=== PATIENT | female | born 1935 | race Caucasian/White ===

== ENCOUNTER 2016-12-21 19:50 | Emergency (ER) | payer OTHER, MEDICARE ==
--- NOTE | 2016-12-21 20:07 | PDOC ---
History of Present Illness - History of Present Illness Initial Comments: 12/21/16 20:21 The patient is a 81 year old female with a past medical hx of HTN who presents to the ED complaining of right foot pain since last night. The patient states she was getting out of her car when she tripped and hit her right foot into the curb. She reports she has been having pain to her foot ever since. She reports she is unable to bear weight or walk on her right foot due to the pain. She denies falling or hitting her neck or head. She denies a hx of fractures to her right foot. She has not taken any medication for the pain and has no further complaints at this time. Social: No toxic habits reported PCP: Dr. Monsivais <Sintia Mckinley - Last Filed: 12/21/16 21:13> <Ebony Davis - Last Filed: 12/22/16 00:30> - General Chief Complaint: Injury Stated Complaint: RIGHT FOOT INJURY Time Seen by Provider: 12/21/16 19:55 Past History <Sintia Mckinley - Last Filed: 12/21/16 21:13> <Ebony Davis - Last Filed: 12/22/16 00:30> - Past Medical History Allergies/Adverse Reactions: Allergies Allergy/AdvReac Type Severity Reaction Status Date / Time bacitracin Allergy Unknown Verified 12/21/16 19:56 phenytoin sodium Allergy Unknown Verified 12/21/16 19:56 [From Dilantin] phenytoin sodium extended Allergy Unknown Verified 12/21/16 19:56 [From Dilantin] Sulfa (Sulfonamide Allergy Unknown Verified 12/21/16 19:56 Antibiotics) bacitracin zinc Allergy Verified 12/21/16 19:56 [From Cortisporin] hydrocortisone Allergy Verified 12/21/16 19:56 [From Cortisporin] neomycin [From Cortisporin] Allergy Verified 12/21/16 19:56 neomycin sulfate Allergy Verified 12/21/16 19:56 [From Cortisporin] polymyxin B Allergy Verified 12/21/16 19:56 [From Cortisporin] polymyxin B sulfate Allergy Verified 12/21/16 19:56 [From Cortisporin] Home Medications: Ambulatory Orders Amlodipine Besylate 5 mg PO DAILY 12/21/16 Ca/D3/Mag#11/Zinc/Facility Maintenance Worker/Gordon/Bor [Caltrate 600+D Plus Tablet] 1 each PO DAILY Fexofenadine HCl [Chasidy Allergy] 60 mg PO DAILY PRN 12/21/16 Hydrochlorothiazide [Hctz -] 25 mg PO DAILY 12/21/16 Levothyroxine [Synthroid -] 150 mcg PO DAILY 12/21/16 Meclizine HCl [Antivert -] 25 mg PO TID PRN 12/21/16 Metoprolol Succinate [Toprol Xl -] 100 mg PO DAILY 12/21/16 Multivit-Min/FA/Lycopen/Lutein [Centrum Silver Tablet] 1 each PO DAILY 12/21/16 Potassium Chloride [Klor-Con] 20 meq PO DAILY 12/21/16 Rosuvastatin Calcium [Crestor] 10 mg PO HS 12/21/16 Warfarin Na [Coumadin] 2 mg PO ASDIR 12/21/16 Warfarin Na [Coumadin] 4 mg PO ASDIR 12/21/16 Review of Systems - Review of Systems Able to Perform ROS?: Yes Comments:: 12/21/16 20:22 CONSTITUTIONAL: Absent: fever, no chills, no fatigue EYES: Absent: visual changes ENT: Absent: ear pain, no sore throat CARDIOVASCULAR: Absent: chest pain, no palpitations RESPIRATORY: Absent: cough, no SOB GI: Absent: abdominal pain, no nausea, no vomiting, no constipation, no diarrhea GENITOURINARY: Absent: dysuria, no frequency, no hematuria MUSCULOSKELETAL: +Right foot pain. Absent: back pain, neck pain SKIN: Absent: rash NEURO: Absent: headache <Sintia Mckinley - Last Filed: 12/21/16 21:13> *Physical Exam - Vital Signs Last Vital Signs Temp Pulse Resp BP Pulse Ox 97.4 F L 65 16 146/72 95 12/21/16 19:54 12/21/16 19:54 12/21/16 19:54 12/21/16 19:54 12/21/16 19:54 - Physical Exam Comments: 12/21/16 20:24 GENERAL: The patient is awake, alert, and fully oriented, in no acute distress. HEAD: Normal with no signs of trauma. EYES: Pupils equal, round and reactive to light, extraocular movements intact, sclera anicteric, conjunctiva clear with no pallor. ENT: Ears normal, nares patent, oropharynx clear without exudates. Moist mucous membranes. NECK: Normal range of motion, supple without lymphadenopathy, JVD, or masses. LUNGS: Breath sounds equal, clear to auscultation bilaterally. No wheeze/ crackles. HEART: Regular rate and rhythm, normal S1 and S2 without murmur or rub. ABDOMEN: Soft/nontender/nondistended. BS wnl. No guarding or rebound. No palpable masses. No hepatosplenomegaly. EXTREMITIES: +Moderate edema and moderate tenderness of the right lateral aspect of the dorsum mid foot with faint ecchymotic area of 3cm x 4cm centered around the lateral mid foot. No deformity noted. Palpable dorsalis pedis pulse mid foot. Distal extremity is warm, dry, and has good capillary refill. Nontender ankle. No clubbing or cyanosis. No cords. NEUROLOGICAL: Cranial nerves II through XII grossly intact. Normal speech, normal gait. PSYCH: Normal mood, normal affect. SKIN: Warm, Dry, normal turgor, no rashes or lesions noted. <Sintia Mckinley - Last Filed: 12/21/16 21:13> ED Treatment Course - RADIOLOGY Radiograph Interpretation: 12/21/16 21:13 X-Ray right foot AP, oblique and lateral projections of the right foot reveals a marked deformity of the foot. There is a fracture through the fifth metatarsal which may be subacute. Clinical correlation is advised. IMPRESSION: Fracture fifth metatarsal Reported By: Damien Soliman MD 12/21/162056 <Sintia Mckinley - Last Filed: 12/21/16 21:13> Medical Decision Making - Medical Decision Making Documentation has been prepared under my direction and personally reviewed by me in its entirety. I attest that this documented accurately reflects all work, treatment, procedures and medical decision making performed by me. as noted above, this 81-year-old woman presents with trauma to the right foot, sustained earlier today. Lateral aspect of the midfoot was impacted against curb when she stumbled getting out of a car. The patient states that she has some pain in the foot but can weight-bear without significant disability. Exam is noted above. Right foot x-ray reveals minimally displaced spiral fracture of the shaft of the fifth metatarsal bone. No other acute abnormality seen. Results discussed with the patient. Patient will have a post-op hard soled shoe applied. She should elevate and ice the foot as much as possible over the next 2-3 days. The patient has her own orthopedist. She should plan on following up with her orthopedist within 1 week (sooner if she has severe pain) . She should take Tylenol as needed for pain. <Ebony Davis - Last Filed: 12/22/16 00:30> *DC/Admit/Observation/Transfer - Attestations Scribe Attestion: 12/21/16 20:21 Documentation prepared by Sintia Mckinley, acting as hospitalist medical director for Ebony Davis MD/DO. <Sintia Mckinley - Last Filed: 12/21/16 21:13> <Ebony Davis - Last Filed: 12/22/16 00:30> Diagnosis at time of Disposition: Fracture of 5th metatarsal Qualifiers: Encounter type: initial encounter Fracture alignment: nondisplaced Laterality: right - Discharge Dispostion Disposition: HOME Condition at time of disposition: Good - Referrals Referrals: Bhavesh Monsivais [Primary Care Provider] - - Patient Instructions Printed Discharge Instructions: Foot Fracture Additional Instructions: elevate/ ice to area as much as possible for the next 2 days hard-soled shoe for ambulation Tylenol as needed for pain followup with your orthopedist within 1 week return here or see your orthopedist sooner if area becomes moire painful
[2016-12-21 20:20] VITALS: BP 146/72; PULSE 65; TEMP 97.4; BMI 36.6
== END 2016-12-21 21:12 | disposition home or self-care (01) ==
LOC: FER 19:50
DX: S92.351A Displaced fracture of fifth metatarsal bone, right foot, initial encounter for closed fracture (principal); X58.XXXA Exposure to other specified factors, initial encounter; Y93.89 Activity, other specified; Y92.410 Unspecified street and highway as the place of occurrence of the external cause; I10 Essential (primary) hypertension
CPT/HCPCS: 73630-TC-RT; 99282-25

== ENCOUNTER 2017-07-15 19:50 | Emergency (ER) | payer OTHER, MEDICARE ==
[2017-07-15 20:05] VITALS: BP 122/66; PULSE 67; TEMP 97.8; BMI 39.9
--- NOTE | 2017-07-15 20:14 | PDOC ---
History of Present Illness <Didi Peña - Last Filed: 07/15/17 21:45> <Ebony Davis - Last Filed: 07/16/17 06:42> - General Chief Complaint: Irregular Heart Beat Stated Complaint: IRREG HEARTBEAT Time Seen by Provider: 07/15/17 19:53 - History of Present Illness Initial Comments: 07/15/17 21:42 The patient is an 82 year old female with past medical history of hypertension, hyperlipidemia, hypothyroidism and vertigo who presents to the ED with complaints of irregular heartbeat that occurred around 5:30 this evening. The patient states that 3 days ago she was at her PCPs office in which she was diagnosed with a UTI and was prescribed Ciprofloxacin. The patient described her heartbeat as skipping after every third beat which lasted about a half hour and has yet to return. In that time period she also felt lightheaded which she is unsure if it was due to her vertigo or not. The episode was not associated with any shortness of breath or chest pain. She believes her symptoms were related to the antibiotics she was prescribed and consulted her pharmacy. She was advised to stop taking the antibiotics. The patient denies any history of heart disease both personally and within her family. She reports being a former smoker. The patient denies any fever, chills, nausea, vomiting, diarrhea, or cough. (Didi Peña) Past History <Didi Peña - Last Filed: 07/15/17 21:45> - Past Medical History DVT: Yes HTN: Yes Hypercholesterolemia: Yes Thyroid Disease: Yes - Psycho/Social/Smoking Cessation Hx Anxiety: No Suicidal Ideation: No Smoking History: Never smoked Hx Alcohol Use: No Drug/Substance Use Hx: No Substance Use Type: None <Ebony Davis - Last Filed: 07/16/17 06:42> - Past Medical History Allergies/Adverse Reactions: Allergies Allergy/AdvReac Type Severity Reaction Status Date / Time bacitracin Allergy Unknown Verified 12/21/16 19:56 phenytoin sodium Allergy Unknown Verified 12/21/16 19:56 [From Dilantin] phenytoin sodium extended Allergy Unknown Verified 12/21/16 19:56 [From Dilantin] Sulfa (Sulfonamide Allergy Unknown Verified 12/21/16 19:56 Antibiotics) bacitracin zinc Allergy Verified 12/21/16 19:56 [From Cortisporin] hydrocortisone Allergy Verified 12/21/16 19:56 [From Cortisporin] neomycin [From Cortisporin] Allergy Verified 12/21/16 19:56 neomycin sulfate Allergy Verified 12/21/16 19:56 [From Cortisporin] polymyxin B Allergy Verified 12/21/16 19:56 [From Cortisporin] polymyxin B sulfate Allergy Verified 12/21/16 19:56 [From Cortisporin] Home Medications: Ambulatory Orders Amlodipine Besylate 5 mg PO DAILY 12/21/16 Ca/D3/Mag#11/Zinc/Chief Of Staff Doctor/Gordon/Bor [Caltrate 600+D Plus Tablet] 1 each PO DAILY Hydrochlorothiazide [Hctz -] 25 mg PO DAILY 12/21/16 Levothyroxine [Synthroid -] 150 mcg PO DAILY 12/21/16 Meclizine HCl [Antivert -] 25 mg PO TID PRN 12/21/16 Metoprolol Succinate [Toprol Xl -] 100 mg PO DAILY 12/21/16 Multivit-Min/FA/Lycopen/Lutein [Centrum Silver Tablet] 1 each PO DAILY 12/21/16 Potassium Chloride [Klor-Con] 20 meq PO DAILY 12/21/16 Rosuvastatin Calcium [Crestor] 10 mg PO HS 12/21/16 Warfarin Na [Coumadin] 2 mg PO ASDIR 12/21/16 Warfarin Na [Coumadin] 4 mg PO ASDIR 12/21/16 Ciprofloxacin [Cipro (Restricted To Id)] 250 mg PO BID 07/15/17 Nitrofurantoin Monohyd/M-Cryst [Macrobid -] 100 mg PO BID #14 capsule 07/15/17 Review of Systems - Review of Systems Able to Perform ROS?: Yes All Other Systems: Reviewed and Negative <Didi Peña - Last Filed: 07/15/17 21:45> <Ebony Davis - Last Filed: 07/16/17 06:42> - Review of Systems Comments:: 07/15/17 21:42 CONSTITUTIONAL: Absent: fever, chills, diaphoresis, generalized weakness, malaise, loss of appetite HEENT: Absent: rhinorrhea, nasal congestion, throat pain, throat swelling, difficulty swallowing, mouth swelling, ear pain, eye pain, visual Changes CARDIOVASCULAR: Present: irregular heartbeat, lightheadedness Absent: chest pain, syncope, palpitations, peripheral edema RESPIRATORY: Absent: cough, shortness of breath, dyspnea with exertion, orthopnea, wheezing, stridor, hemoptysis GASTROINTESTINAL: Absent: abdominal pain, abdominal distension, nausea, vomiting, diarrhea, constipation, melena, hematochezia GENITOURINARY: Absent: dysuria, frequency, urgency, hesitancy, hematuria, flank pain, genital pain MUSCULOSKELETAL: Absent: myalgia, arthralgia, joint swelling SKIN: Absent: rash, itching, pallor HEMATOLOGIC/IMMUNOLOGIC: Absent: easy bleeding, easy bruising, lymphadenopathy, frequent infections ENDOCRINE: Absent: unexplained weight gain, unexplained weight loss, heat intolerance, cold intolerance NEUROLOGIC: Absent: headache, focal weakness or paresthesias, dizziness, unsteady gait, seizure, mental status changes, bladder or bowel incontinence PSYCHIATRIC: Absent: anxiety, depression, suicidal or homicidal ideation, hallucinations. (MarianaDidi) *Physical Exam <MarianaDidi - Last Filed: 07/15/17 21:45> <Ebony Davis Jory - Last Filed: 07/16/17 06:42> - Vital Signs Last Vital Signs Temp Pulse Resp BP Pulse Ox 97.8 F 67 18 122/66 96 07/15/17 20:03 07/15/17 20:03 07/15/17 20:03 07/15/17 20:03 07/15/17 20:03 - Physical Exam Comments: 07/15/17 21:44 GENERAL: The patient is awake, alert, and fully oriented, in no acute distress. HEAD: Normal with no signs of trauma. EYES: Pupils equal, round and reactive to light, extraocular movements intact, sclera anicteric, conjunctiva clear with no pallor. ENT: Ears normal, nares patent, oropharynx clear without exudates. Moist mucous membranes. NECK: Normal range of motion, supple without lymphadenopathy, JVD, or masses. LUNGS: Breath sounds equal, clear to auscultation bilaterally. No wheeze/ crackles. HEART: Regular rate and rhythm, normal S1 and S2 without murmur or rub. ABDOMEN: Soft/nontender/nondistended. BS wnl. No guarding or rebound. No palpable masses. No hepatosplenomegaly. EXTREMITIES: 1+ pitting edema bilaterally, and vericosities on bilateral lower etremities. Normal range of motion. No clubbing or cyanosis. No cords, erythema , or tenderness. NEUROLOGICAL: Cranial nerves II through XII grossly intact. Normal speech, normal gait. PSYCH: Normal mood, normal affect. SKIN: Warm, Dry, normal turgor, no rashes or lesions noted. (Didi Peña) Heart Score/ECG Review <Didi Peña - Last Filed: 07/15/17 21:45> <Ebony Davis - Last Filed: 07/16/17 06:42> - ECG Intrepretation Comment:: 07/15/17 21:45 ECG obtained at 20:22 Normal sinus at 65 bpm Left axis deviation (Didi Peña) ED Treatment Course - LABORATORY CBC & Chemistry Diagram: 07/15/17 21:35 07/15/17 21:37 <Didi Peña - Last Filed: 07/15/17 21:45> - LABORATORY CBC & Chemistry Diagram: 07/15/17 21:35 07/15/17 21:37 <Ebony Davis - Last Filed: 07/16/17 06:42> - ADDITIONAL ORDERS Additional order review: Laboratory Results 07/15/17 21:37 Sodium 136 Potassium 3.5 Chloride 99 Carbon Dioxide 30 H Anion Gap 7 L BUN 18 Creatinine 0.7 Creat Clearance w eGFR > 60 Random Glucose 106 Calcium 8.9 Magnesium 2.0 Total Bilirubin 1.1 H AST 23 ALT 15 Alkaline Phosphatase 53 Creatine Kinase 46 Troponin I < 0.03 L Total Protein 6.7 Albumin 3.4 L 07/15/17 21:35 RBC 5.25 H MCV 91.2 MCHC 33.7 RDW 13.6 MPV 8.9 Neutrophils % 44.5 Lymphocytes % 31.4 Monocytes % 15.2 H Eosinophils % 4.2 Basophils % 4.7 H Progress Note <Didi Peña - Last Filed: 07/15/17 21:45> <Ebony Davis - Last Filed: 07/16/17 06:42> - Progress Note Progress Note: Documentation has been prepared under my direction and personally reviewed by me in its entirety. I attest that this documented accurately reflects all work, treatment, procedures and medical decision making performed by me. (Ebony Davis) Medical Decision Making <Didi Peña - Last Filed: 07/15/17 21:45> <Ebony Davis - Last Filed: 07/16/17 06:42> - Medical Decision Making Twelve-lead electrocardiogram performed and interpretation by me: Normal sinus rhythm at 65 bpm; intervals and wave forms are normal. There is left axis deviation. There is no evidence of arrhythmia or acute ST or T-wave abnormalities. Patient had no further sensation of palpitations or experiences shortness of breath/chest pain while evaluation was underway. Patient had an episode of her usual, chronic vertigo which was not different from previous episodes. She self -administered meclizine which she carries with her self with resolution of her symptoms. Laboratory evaluation showed mild elevation of white blood cell count of 12, 400. Hemoglobin/hematocrit was also mildly elevated. Because of BUN was elevated(18) with a creatinine 0.7, there may be some prerenal azotemia/ hemoconcentration present. Electrolytes including magnesium are normal. Patient will be discharged with instructions to drink plenty of fluids and rest. She should avoid all caffeinated beverages (patient states that she drinks only decaffeinated coffee usually). She should stop Cipro as previously suggested. She asked for substitute treatment of her UTI. The patient is unable to provide a urine sample so UA/urine C&S will not be possible. However , because the patient is afraid that her symptoms may get more severe and she will not be able to contact her general doctor until 2 days from now (Tuesday), we will start Macrodantin (as Macrobid twice a day for one week). Patient has no history of ALLERGY to this antibiotic and has no interaction with any of her medications. She should return to the emergency room if she has any further palpitations or experiences worsening of her urinary tract symptoms (Ebony Davis) *DC/Admit/Observation/Transfer <Didi Peña - Last Filed: 07/15/17 21:45> <Ebony Davis - Last Filed: 07/16/17 06:42> Diagnosis at time of Disposition: History of palpitations UTI (urinary tract infection) Qualifiers: Urinary tract infection type: acute cystitis Hematuria presence: without hematuria Qualified Code(s): N30.00 - Acute cystitis without hematuria - Discharge Dispostion Disposition: HOME Condition at time of disposition: Stable - Prescriptions Prescriptions: Nitrofurantoin Monohyd/M-Cryst [Macrobid -] 100 mg PO BID #14 capsule - Patient Instructions Printed Discharge Instructions: DI for Arrhythmias Additional Instructions: Drink plenty of water Continue other medications as prescribed Macrobid twice a day for one week for urinary tract infection Return to ER if you have any further palpitations Return to ER if you have worsening urinary pain/fever/back pain/vomiting Follow-up with your general doctor within the next 5 days - Attestations Scribe Attestion: 07/15/17 21:44 Documentation prepared by Didi Peña, acting as medical office assistant instructor for Ebony Davis MD. (Didi Peña)
[2017-07-15 21:46] LABS: BASOPHIL 4.7 % (0-2.0); EOSINOPHIL 4.2 % (0-4.5); MCH 30.8 pg (25.7-33.7); MCHC 33.7 g/dl (32.0-36.0); MEAN CELL VOLUME 91.2 fl (80-96); MEAN PLT VOLUME 8.9 fl (7.5-11.1); NEUTROPHILS 44.5 % (42.8-82.8); PLATELET COUNT 361 K/MM3 (134-434); RDW 13.6 % (11.6-15.6); WHITE BLOOD COUNT 12.4 K/mm3 (4.0-10.8)
[2017-07-15 22:03] LABS: ALBUMIN 3.4 g/dl (3.5-5.0); ALK PHOS 53 U/L (32-92); ANION GAP 7 (8-16); BILIRUBIN,TOTAL 1.1 mg/dl (0.2-1.0); CALCIUM 8.9 mg/dl (8.4-10.2); CO2 30 mmol/L (22-28); CPK 46 IU/L (26-192); CREATININE 0.7 mg/dl (0.6-1.3); GLUCOSE,RANDOM 106 mg/dl (74-106); SGOT/AST 23 U/L (10-42); SGPT/ALT 15 U/L (10-40); TOT PROT 6.7 g/dl (6.4-8.3)
[2017-07-15 22:20] LABS: TROPONIN I (DFP) < 0.03 ng/ml (0.03-0.50)
--- NOTE | 2017-07-19 10:34 | EKG ---
Test Reason : Blood Pressure : / mmHG Vent. Rate : 065 BPM Atrial Rate : 065 BPM P-R Int : 170 ms QRS Dur : 100 ms QT Int : 420 ms P-R-T Axes : 060 -32 037 degrees QTc Int : 436 ms NORMAL SINUS RHYTHM LEFT AXIS DEVIATION NO PREVIOUS ECGS AVAILABLE Confirmed by MD DONOVAN, CLAUDIA ([id number]) on 07/19/2017 10:34:17 AM Referred By: ALLYSSA Confirmed By:CLAUDIA MAN MD
== END 2017-07-15 22:46 | disposition home or self-care (01) ==
LOC: FER 19:50
DX: R00.2 Palpitations (principal); N30.00 Acute cystitis without hematuria; I10 Essential (primary) hypertension; E78.5 Hyperlipidemia, unspecified; E03.9 Hypothyroidism, unspecified; R42 Dizziness and giddiness; Z86.718 Personal history of other venous thrombosis and embolism; Z79.01 Long term (current) use of anticoagulants
CPT/HCPCS: 36415; 80053; 83735; 84484; 85025; 93005; 99281-25